=== PATIENT | female | born 1990 | race African-American/Black ===

== ENCOUNTER 2023-12-12 09:27 | Emergency (ER) | payer MEDICAID ==
[~2023-12-12] VITALS: Ht 165.1 cm; Wt 52.0 kg
[2023-12-12 09:35] VITALS: BP 134/88; PULSE 100; RESP 16; TEMP 98.2; O2SAT 99
[2023-12-12] MEDS ORDERED: IBUPROFEN 600MG TABLET PO ONE (11:15)
[2023-12-12] MEDS ORDERED: IBUP-2029 MT (15:13)
== END 2023-12-12 11:26 | disposition home or self-care (01) ==
LOC: ER 09:43
DX: S80.11XA Contusion of right lower leg, initial encounter (principal); Z89.511 Acquired absence of right leg below knee; W18.30XA Fall on same level, unspecified, initial encounter; Y93.89 Activity, other specified; Y92.89 Other specified places as the place of occurrence of the external cause; Y99.8 Other external cause status
CPT/HCPCS: 81025; 73552; 99283; Z7610